=== PATIENT | male | born 1995 | race Caucasian/White ===

== ENCOUNTER 2018-04-21 03:39 | Emergency (ER) | payer SELFPAY ==
[~2018-04-21] VITALS: Ht 167.6 cm; Wt 65.8 kg
[2018-04-21 03:40] VITALS: BP 130/77
--- NOTE | 2018-04-21 03:45 | NUR ---
PT TAKEN TO BED 3
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
[2018-04-21 04:05] VITALS: BP 124/63
--- NOTE | 2018-04-21 04:05 | NUR ---
Patient discharged with v/s stable. Written and verbal after care instructions given and explained. Patient alert, oriented and verbalized understanding of instructions. Ambulatory with steady gait. All questions addressed prior to discharge. ID band removed. Patient advised to follow up with PMD. Rx of MOTRIN, AUGMENTIN given. Patient educated on indication of medication including possible reaction and side effects. Opportunity to ask questions provided and answered.
== END 2018-04-21 04:05 | disposition home or self-care (01) ==
LOC: MED 03:39
DX: S00.531A Contusion of lip, initial encounter (principal); R03.0 Elevated blood-pressure reading, without diagnosis of hypertension; Y04.0XXA Assault by unarmed brawl or fight, initial encounter; Y93.89 Activity, other specified; Y92.89 Other specified places as the place of occurrence of the external cause; Y99.8 Other external cause status
CPT/HCPCS: 99283

== ENCOUNTER 2019-10-02 18:41 | Emergency (ER) | payer MEDICAID ==
[~2019-10-02] VITALS: Ht 167.6 cm; Wt 65.8 kg
[2019-10-02 19:10] VITALS: BP 108/53
--- NOTE | 2019-10-02 19:33 | NUR ---
Pt ambulated to [facility].
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
[2019-10-02] MEDS ORDERED: KETOROLAC 30 MG/ML VIAL IM ONE (19:50)
[2019-10-02] MEDS ORDERED: DEXAMETHASONE 10 MG/ML VIAL IM ONE (19:50)
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
[2019-10-02 20:39] VITALS: BP 110/62
--- NOTE | 2019-10-02 20:39 | NUR ---
Patient discharged with v/s stable. Written and verbal after care instructions given and explained. Patient alert, oriented and verbalized understanding of instructions. Ambulatory with steady gait. All questions addressed prior to discharge. ID band removed. Patient advised to follow up with PMD. Rx of IBUPROFEN, CEPACOL given. Patient educated on indication of medication including possible reaction and side effects. Opportunity to ask questions provided and answered.
== END 2019-10-02 20:39 | disposition home or self-care (01) ==
LOC: MED 18:41
DX: J02.8 Acute pharyngitis due to other specified organisms (principal); B97.89 Other viral agents as the cause of diseases classified elsewhere; F17.210 Nicotine dependence, cigarettes, uncomplicated
CPT/HCPCS: 87081; 96372; 99284; J1100; J1885

== ENCOUNTER 2019-11-05 12:35 | Emergency (ER) | payer MEDICAID ==
[~2019-11-05] VITALS: Ht 167.6 cm; Wt 68.0 kg
--- NOTE | 2019-11-05 12:50 | NUR ---
Patient ambulated to bed 5
[2019-11-05 12:53] VITALS: BP 103/42
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
[2019-11-05] MEDS ORDERED: FAMOTIDINE 20 MG/2 ML VIAL IVP ONE (13:20)
[2019-11-05] MEDS ORDERED: ONDANSETRON 4 MG/2 ML VIAL IVP ONE (13:20)
[2019-11-05] MEDS ORDERED: NACL 0.9% 1,000 ML IV ONE (13:20)
[2019-11-05 14:30] VITALS: BP 103/42
--- NOTE | 2019-11-05 14:30 | NUR ---
Patient discharged with v/s stable. Written and verbal after care instructions given and explained. Patient verbalized understanding. Ambulatory with steady gait. All questions addressed prior to discharge. Advised to follow up with PMD.
== END 2019-11-05 14:30 | disposition home or self-care (01) ==
LOC: MED 12:35
DX: R11.2 Nausea with vomiting, unspecified (principal); F10.10 Alcohol abuse, uncomplicated
CPT/HCPCS: 96361; 96374; 96375; 99284; J2405; J3490; J7030

== ENCOUNTER 2021-06-02 06:55 | Emergency (ER) | payer OTHER, MEDICAID ==
[~2021-06-02] VITALS: Ht 167.6 cm; Wt 63.5 kg
[2021-06-02 07:03] VITALS: BP 128/52
--- NOTE | 2021-06-02 07:09 | NUR ---
PT AMBULATED TO ER BED 11 UNASSISTED
[2021-06-02] MEDS ORDERED: ONDANSETRON 4 MG/2 ML VIAL IVP ONE (07:20)
[2021-06-02] MEDS ORDERED: KETOROLAC 15 MG/ML VIAL IVP ONE (07:20)
[2021-06-02] MEDS ORDERED: NACL 0.9% 1,000 ML IV ONE (07:20)
[2021-06-02] MEDS ORDERED: PANTOPRAZOLE 40 MG INJ VIAL IVP ONE (07:20)
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
[2021-06-02 07:33] LABS: BASOPHILS # (AUTO) 0.1 K/uL (0.00-0.22); BASOPHILS % (AUTO) 0.4 % (0.0-2.0); EOSINOPHILS % (AUTO) 0.3 % (0.0-4.0); HEMATOCRIT 47.6 % (36-52); HEMOGLOBIN 15.7 g/dL (12.0-18.0); LYMPHOCYTES # (AUTO) 0.9 K/uL (2.0-11.5); LYMPHOCYTES % (AUTO) 7.1 % (20.5-51.1); MEAN CORPUSCULAR HEMOGLOBIN 28 pg (27-31); MEAN CORPUSCULAR HGB CONC 33 g/dL (33-37); MEAN CORPUSCULAR VOLUME 83.9 fL (80-94); MONOCYTES # (AUTO) 0.8 K/uL (0.8-1.0); MONOCYTES % (AUTO) 6.5 % (1.7-9.3); NEUTROPHILS # (AUTO) 10.9 K/uL (1.8-7.7); NEUTROPHILS % (AUTO) 85.7 % (42.2-75.2); PLATELET COUNT (AUTO) 248 K/uL (140-450); RED BLOOD CELL COUNT(AUTO) 5.68 MIL/uL (4.20-6.10); RED CELL DISTRIBUTION WIDTH 13.2 % (11.6-13.7); WHITE BLOOD COUNT (AUTO) 12.7 K/uL (4.8-10.8)
[2021-06-02 07:48] LABS: ALBUMIN 4.5 g/dL (3.4-5.0); ANION GAP 5.2 (8-16); CARBON DIOXIDE 27.8 mmol/L (21-32); CREATININE 1.1 mg/dL (0.6-1.3); TOTAL BILIRUBIN 0.4 mg/dL (0.0-1.0)
[2021-06-02] MEDS ORDERED: ALUMINUM HYD/MAG/SIMETHICONE 30 ML UDC PO ONE (08:00)
--- NOTE | 2021-06-02 08:22 | NUR ---
PT TAKEN TO CT SCAN VIA [facility]
--- NOTE | 2021-06-02 08:33 | NUR ---
PT RETURNED FROM CT SCAN
[2021-06-02] MEDS ORDERED: MORPHINE SULFATE 4 MG/ML SYR IVP ONE ×2 (08:40→09:20)
--- NOTE | 2021-06-02 09:15 | NUR ---
PT REQUESTING FOR WATER, PER DR KELLY GARCIA TO GIVE. WATER PROVIDED.
--- NOTE | 2021-06-02 09:20 | NUR ---
PT STATES "I CANT GO RIGHT NOW" ERMD MADE AWARE
--- NOTE | 2021-06-02 09:21 | NUR ---
PT UNABLE TO PROVIDE URINE
[2021-06-02] MEDS ORDERED: HALOPERIDOL IM 5 MG/ML VIAL IVP ONE (09:25)
--- NOTE | 2021-06-02 10:01 | NUR ---
DR MENDOZA AT BEDSIDE EXAMINING PT
[2021-06-02] MEDS ORDERED: PANT40EC PO (10:18)
[2021-06-02] MEDS ORDERED: ONDA-188 SL (10:18)
[2021-06-02 10:29] VITALS: BP 115/88
--- NOTE | 2021-06-02 10:29 | NUR ---
Patient discharged with v/s stable. Written and verbal after care instructions given and explained. Patient alert, oriented and verbalized understanding of instructions. Ambulatory with steady gait. All questions addressed prior to discharge. ID band removed. Patient advised to follow up with PMD. Rx of ZOFRAN AND PROTONIX given. Patient educated on indication of medication including possible reaction and side effects. Opportunity to ask questions provided and answered.
== END 2021-06-02 10:29 | disposition home or self-care (01) ==
LOC: MED 06:55
DX: R10.9 Unspecified abdominal pain (principal); R11.10 Vomiting, unspecified; Z79.899 Other long term (current) drug therapy
CPT/HCPCS: 36415; 74177; 80053; 83690; 85025; 96361; 96374; 96375; 96376; 99285; C9113; J1630; J1885; J2270; J2405; J7030; Q9967

== ENCOUNTER 2022-07-17 03:12 | Emergency (ER) | payer OTHER ==
[~2022-07-17] VITALS: Ht 167.6 cm; Wt 65.8 kg
[~2022-07-17 03:12] MED LIST: ONDA-188 SL; PANT40EC PO
--- NOTE | 2022-07-17 03:12 | NUR ---
PT [facility],TAKEN TO CHAIR
[2022-07-17 03:18] VITALS: BP 119/58
--- NOTE | 2022-07-17 04:10 | NUR ---
PT TAKEN TO CT VIA W/C
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
[2022-07-17 05:54] VITALS: BP 119/58
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
== END 2022-07-17 05:54 ==
LOC: MED 03:12
DX: S01.111A Laceration without foreign body of right eyelid and periocular area, initial encounter (principal); F10.129 Alcohol abuse with intoxication, unspecified; Y90.9 Presence of alcohol in blood, level not specified; V49.88XA Car occupant (driver) (passenger) injured in other specified transport accidents, initial encounter; Y93.89 Activity, other specified; Y92.89 Other specified places as the place of occurrence of the external cause; Y99.8 Other external cause status
CPT/HCPCS: 70450; 70486; 72125; 99284